=== PATIENT | male | born 1995 | race Caucasian/White ===

== ENCOUNTER 2016-06-26 08:58 | Day surgery (SDC) | payer BC ==
[2016-06-22 17:57] VITALS: BMI 33.0
[~2016-06-26 08:58] MED LIST: oxyCODONE HCL 10 MG SUSTAINED ACTING TABLET PO ONE
[2016-06-26] MEDS ORDERED: MIDAZOLAM HCL 2 MG/2 ML SINGLE DOSE VIAL ONE (11:29)
[2016-06-26] MEDS ORDERED: LIDOCAINE 1%-EPI 1:100,000 30 ML MDV IJ ONE (11:47)
[2016-06-26] MEDS ORDERED: THROMBIN (BOVINE) 5,000 UNIT VIAL TP ONE ×2 (11:47→13:11)
[2016-06-26] MEDS ORDERED: GUM MASTIC/STORAX/MSAL/ALCOHOL 1 DRP DROPSBTL MC ONE (11:47)
[2016-06-26] MEDS ORDERED: BUPIVACAINE HCL/PF 2.5 MG/ML - 30 ML VIAL IJ ONE (11:47)
[2016-06-26] MEDS ORDERED: methylPREDNISolone ACET (DEPO) 40 MG/1 ML VIAL ONE (11:47)
--- NOTE | 2016-06-26 11:51 | HP ---
History & Physical Update - History History: No Change - Physical Physical: No Change (GEN:A&0x3, NAD CV: RRR Lungs: CTA b/l ABD: soft, non- distended, non-tender LE: no calf tenderness/no swelling noted. Lower ext: 5/5 b /l dorsi/plantarEHL flexion) - Assessment Assessment: No Change - Plan Plan: No Change
[2016-06-26] MEDS ORDERED: PROPOFOL 20 ML ONE ×4 (12:06→13:32)
[2016-06-26] MEDS ORDERED: ceFAZolin SODIUM 1 GM VIAL ONE (12:22)
[2016-06-26] MEDS ORDERED: ONDANSETRON 4 MG/2 ML VIAL ONE (12:26)
[2016-06-26] MEDS ORDERED: DEXAMETHASONE SOD PHOSPHATE 4 MG/1 ML VIAL ONE (12:26)
[2016-06-26] MEDS ORDERED: LIDOCAINE 1%/EPI 1:100000 (50 ML MULTI DOSE VIAL) INF ONE (12:30)
[2016-06-26] MEDS ORDERED: BUPIVACAINE HCL 0.25% 125 MG/50 ML VIAL INF ONE (13:10)
[2016-06-26] MEDS ORDERED: methylPREDNISolone ACET (DEPO) 40 MG/1 ML VIAL IM ONE (13:12)
[2016-06-26] MEDS ORDERED: ROCURONIUM BROMIDE 50 MG/5 ML VIAL ONE (13:33)
[2016-06-26] MEDS ORDERED: oxyCODONE HCL 5 MG TABLET PO PRN (14:00)
[2016-06-26] MEDS ORDERED: ONDANSETRON 4 MG/2 ML VIAL IVPUSH PRN (14:00)
[2016-06-26] MEDS ORDERED: LACTATED RINGERS SOLUTION 1,000 ML IV SCH (14:00)
--- NOTE | 2016-06-26 14:28 | OP ---
Operative Note - Note: Operative Date: 06/26/16 Pre-Operative Diagnosis: spinal stenosis Operation: L4-L5 laminectomy, microdisectomy Post-Operative Diagnosis: Same as Pre-op Surgeon: Harley Mccauley Transformer Maker: Shazia Chacon Anesthesiologist/CARD SERVICES SPECIALIST: Ina Billings Anesthesia: Spinal Specimens Removed: disc Estimated Blood Loss (mls): 20 Fluid Volume Replaced (mls): 1,000 Operative Report Dictated: Yes
--- NOTE | 2016-06-26 14:28 | SURG ---
Surgery Paste Mixing Supervisor Note Paste Mixing Supervisor: Shazia Chacon PA-C Date of Service: 06/26/16 Diagnosis: spinal stenosis Procedure: L4-L5 laminectomy, microdisectomy I was present for the entirety of the operative procedure. For further detail, please refer to operative report. Visit type - Case Type Case Type: Scheduled Admission - Emergency Emergency Visit: No - New patient This patient is new to me today: Yes Date on this admission: 06/26/16 - Critical Care Critical Care patient: No
[2016-06-26 14:57] VITALS: PULSE 66; TEMP 98.6
[2016-06-26] MEDS ORDERED: oxyCODONE HCL 5 MG TABLET ONE (15:43)
[2016-06-26 17:30] VITALS: BP 116/72
--- NOTE | 2016-06-26 21:11 | OP ---
DATE OF OPERATION: 06/26/2016 PREOPERATIVE DIAGNOSIS: Spinal stenosis at L4-5. POSTOPERATIVE DIAGNOSIS: Spinal stenosis at L4-5. PROCEDURE PERFORMED: Laminectomy, L4-5. SURGEON: Harley Mccauley MD CURB SUPERVISOR: MARY Alejandro ESTIMATED BLOOD LOSS: 50 mL. IV FLUIDS: Per Anesthesia. ANESTHESIA: Spinal. COMPLICATIONS: There were none. DISPOSITION: Patient brought to the PACU in stable condition. INDICATION FOR SURGERY: The patient is a 21-year-old gentleman who has been suffering from pain from his back down his leg. X-rays and MRI were completed, which noted that he had spinal stenosis at L4-5 with a herniated disk at that level. He had gone through an exhaustive course of treatment for this, which included medications, physical therapy as well as injections. Unfortunately, his pain continued to persist despite all this. At this point, risks, benefits, and alternatives were discussed and the patient consented to surgery. OPERATIVE NOTE: Patient was brought to the operating room by the anesthesia staff. After appropriate patient identification was performed, spinal anesthesia was given. He was placed prone onto the Francisco frame, with all areas of bony prominences well padded at this time. Two needles were placed into his back to yolanda off the L4-5 segment. An x-ray was taken to confirm this was correct. The needle was removed and 10 mL of lidocaine with epinephrine was injected into his back at this time. His back was prepped and draped in a sterile manner. At this point, time-out was completed. An incision was made from the top of L4 down to bottom of L5. Dissection was carried down to the fascia and the fascia was opened up on the right-hand side. Appropriate retractors were then placed in. A spinal needle was placed onto the L4 lamina and x-rays taken to confirm this was correct. The needle was removed. The microscope was brought in. Portions of the L4-L5 lamina were removed. Flavum was identified, it was removed. Portions of the inferior and superior facets were removed to complete a foraminotomy. The nerve root was mobilized medially. Disk herniation was noted. It was removed at this time. By the end of the procedure, the L5 nerve root appeared to be well decompressed. All bleeding was well controlled at this time. Steroid was placed over the nerve, FloSeal was placed over that. The fascia was closed with a number 1 Vicryl suture. The subcutaneous tissues were closed with 2-0 Vicryl sutures. Skin was closed with 3-0 Monocryl suture. Dermabond was applied, Steri-Strips were applied, sterile dressing was applied. The patient was placed supine on the OR bed and brought to the PACU in stable condition. Pineda COULTER/[id number]
--- NOTE | 2016-06-28 16:18 | PATH ---
Surgical Pathology Report Patient Name: FLORENTIN HERNÁNDEZ [facility]. Rec. #: [id number] /Age/Gender: 1995 (Age: 21) / M Account: [id number] Location: [facility] Taken: 06/26/2016 Received: 06/26/2016 Reported: 06/28/2016 Physicians: Harley Mccauley M.D. Specimen(s) Received L4-5 DISC Clinical History Spinal stenosis Final Diagnosis INTERVERTEBRAL DISC, L4-5, PARTIAL EXCISION: PORTIONS OF INTERVERTEBRAL DISC. Electronically Signed Marcus Forte M.D. Gross Description Received in formalin, labeled "L4-5 disc," is a 2.3 x 1.8 x 0.3 cm aggregate of pantoja-vazquez fragments of fibrocartilaginous tissue. The specimen is submitted in toto in one cassette. 06/27/201606/27/2016
== END 2016-06-26 17:25 | disposition home or self-care (01) ==
LOC: FASU 08:58
PROVIDERS: ATTEND Orthopaedic Surgery Orthopaedic Surgery of the Spine
PROC: 01NB0ZZ Release Lumbar Nerve, Open Approach (ICD-10-PCS; principal; 2016-06-26 11:45)
DX: M48.06 Spinal stenosis, lumbar region (principal)
CPT/HCPCS: 72100-TC; 76000-TC; 88304-TC